=== PATIENT | female | born 1955 | race Caucasian/White ===

== ENCOUNTER 2018-08-22 16:27 | Emergency (ER) | payer BC, OTHER ==
[~2018-08-22] VITALS: Ht 167.6 cm; Wt 61.4 kg
[2018-08-22 16:29] VITALS: Ht 167.6 cm; Wt 61.4 kg
[2018-08-22] MEDS ORDERED: PROPOFOL 200 MG INJ IV ONE (17:00)
--- NOTE | 2018-08-22 17:52 | ERD ---
ER Documentation Chief Complaint Chief Complaint left foot injury sent fr [facility] for reduction HPI This is a 63-year-old female who is here from Dr. choi office, for conscious sedation for a left ankle reduction. The patient fell 2 days ago and was seen in outside hospital and just given a splint when she actually has a fractured with severely displaced medial malleolus. He sent the patient here for IV and conscious sedation he will reduce the patient's ankle himself. She complains of sharp pain to her left ankle only with movement but none with rest ROS All systems reviewed and are negative except as per history of present illness. FmHx Family History: No coronary disease Physical Exam Vitals Vital Signs Date Temp Pulse Resp B/P (MAP) Pulse Ox O2 O2 Flow FiO2 Time Delivery Rate 08/22/18 98.4 69 18 165/89 97 16:29 (114) Physical Exam Const: No acute distress Head: Atraumatic Eyes: Normal Conjunctiva ENT: Normal External Ears, Nose and Mouth. Neck: Full range of motion. No meningismus. Resp: Clear to auscultation bilaterally Cardio: Regular rate and rhythm, no murmurs Abd: Soft, non tender, non distended. Normal bowel sounds Skin: No petechiae or rashes Back: No midline or flank tenderness Ext: No cyanosis, or edema, the left lower leg is in a plaster splint from the knee to the toes, toes have good cap refill and sensation and movement Neur: Awake and alert Psych: Normal Mood and Affect Results 24 hrs Current Medications Medications Dose Sig/Kay Start Time Status Last (Trade) Ordered Route PRN Stop Time Admin Dose Reason Admin Propofol 100 mg ONCE ONCE 08/22/18 DC (Diprivan) IV 17:00 08/22/18 17:01 Procedures/MDM Procedural Sedation: Pre-assessment performed. See preceding complete history and physical for details. Time out performed. See sedation documentation for details. Risk, benefits and alternatives were discussed with the patient. Medication(s): Propofol Complications: No hypoxic or apneic events Recovered without incident. A minimum of 16 minutes of face to face time was performed including preparation, sedation and recovery time. I was at bedside during the conscious sedation duration. The ankle was reduced by Dr. choi, and the postreduction splint was applied by him and his orthopedic fellow. We will discharge with [facility] and follow-up with him Departure Diagnosis: Primary Impression: Fx medial malleolus-closed Encounter type: subsequent encounter Fracture alignment: displaced Laterality: left Fracture healing: with malunion Qualified Codes: S82.52XP - Displaced fracture of medial malleolus of left tibia, subsequent encounter for closed fracture with malunion Condition: Stable JOS BENNETT DO Aug 22, 2018 17:52
[2018-08-22] MEDS ORDERED: HYDR-3980 PO (17:55)
[2018-08-22] MEDS ORDERED: IBUP-1542 PO (17:55)
[2018-08-22 18:12] VITALS: BP 138/78; PULSE 77; RESP 18
[2018-08-22] MEDS ORDERED: ONDANSETRON 4 MG INJ IV STA (18:13)
[2018-08-22] MEDS ORDERED: HYDROmorphONE 1 MG/ML SYG IV STA (18:13)
--- NOTE | 2018-08-22 22:41 | OPR ---
Date/Time of Note Date/Time of Note DATE: 08/22/18 TIME: 22:25 Operative Report Procedure Date: Aug 22, 2018 Preoperative Diagnosis Left ankle trimalleolar fracture dislocation Postoperative Diagnosis Left ankle trimalleolar fracture dislocation Operation/Procedure Performed Left ankle trimalleolar fracture dislocation closed reduction under sedation Placement of Short leg Cast Surgeon Cristian Terry MD Live Truck Operator Leland Venegas MD Anesthesia Type: other (Propofol) Estimated Blood Loss: none Transfusion none Specimen none Grafts/Implants none Complications none Pt Condition Post Procedure: stable Disposition: other (ED) Indications Patient is a 63 year old female with a displaced ankle fracture dislocation that requires closed reduction under sedation given the severe displacement causing medial tenting on the skin. Risk Note: Patient was explained the risks and benefits of surgery and the p atient's [place] language including not limited to infection, bleeding, injury to blood vessels, nerves, ligaments or tendons. Risks of anesthesia, deep vein thrombosis and need for reduce future surgery. Patient acknowledged these risk by signing the surgical consent form. Procedure Description Patient was met in the emergency room and discussed the risks and benefits and patient signed the consent and wished to proceed. She was given Propofol sedation by Emergency room physicians. Patients trimalleolar ankle fracture was then reduced into the proper position to take stress off the medial ankle. The ankle was then placed into a short leg cast. She tolerated anesthesia without complication. Post reduction xrays confirmed the ankle was well reduced and the talus was reduced under the tibia appropriately CRISTIAN TERRY MD Aug 22, 2018 22:40
--- NOTE | 2018-08-23 06:27 | CONS ---
DATE OF ADMISSION: 08/22/2018 DATE OF CONSULTATION: 08/22/2018 CHIEF COMPLAINT: Left ankle pain. HISTORY OF PRESENT ILLNESS: Ms. Edwards is a delightful 63-year-old female who presented with a dis located left trimalleolar ankle fracture that was in a malreduced and malaligned position with tentin g on the medial ankle. Given her pain and malreduced position, the patient was indicated for a close d reduction today in the emergency room. She reports the pain as 8/10 in severity. PAST MEDICAL HISTORY: As stated in the chart. PAST SURGICAL HISTORY: As stated in the chart. ALLERGIES: NONE. SOCIAL HISTORY: The patient denies alcohol, tobacco or drug use. REVIEW OF SYSTEMS GENERAL: The patient denies any fever or weight loss. EYES: The patient denies any eye pain or discharge. ENT: The patient denies sore throat, ear pain, or difficulty swallowing. NECK: The patient denies any neck pain or stiffness. PULMONARY: No cough or productive phlegm. CARDIAC: The patient denies any chest pain, palpitations, orthopnea or PND. GASTROINTESTINAL: The patient denies any nausea, vomiting, diarrhea, abdominal pain or bloody emesis /stool. MUSCULOSKELETAL: The patient denies any arthralgias, myalgias or focal swelling. NEUROLOGIC: The patient denies any focal numbness, weakness, confusion or headache. SKIN: The patient denies any rash, irritation or erythema. ENDOCRINE: No polydipsia, polyuria. No heat or cold intolerance. PSYCHIATRIC: The patient denies any depression or anxiety or hallucinations. HEMATOLOGIC: No abnormal bruising or bleeding. PHYSICAL EXAMINATION VITAL SIGNS: Blood pressure , pulse rate , respiratory rate , and temperature d egrees. GENERAL: The patient is well developed and appropriate for usual state of health, in no apparent dis tress. HEENT: Atraumatic. Conjunctivae are pink. Pupils equal, round, and reactive to light. There is no sc leral icterus. Tympanic membranes clear bilaterally. Oropharynx clear. No nystagmus or photophobia. NECK: C-spine is soft and supple. There is no meningismus. There is no cervical lymphadenopathy. No JVD. No bruits. No goiter. CHEST: Clear to auscultation bilaterally. There are no rales, wheezes or rhonchi. HEART: Regular rate and rhythm. No murmurs, clicks, rubs or gallops. No S3 or S4. ABDOMEN: Soft, nontender and nondistended. Good bowel sounds. No rebound or guarding. No gross perit onitis. No gross organomegaly or masses. No Nur sign or McBurney point tenderness. BACK: No midline or flank tenderness. EXTREMITIES: She has significant swelling with ecchymosis and tenderness over the medial and lateral ankle with tenting of the skin medially with no open sores or wound noted. She has limited ankle do rsiflexion and plantar flexion due to pain. She says she has pain 8/10. NEURO: Alert and oriented. Cranial nerves 2-12 intact. Motor strength in all 4 extremities with 5/5 strength. Sensation grossly intact. Normal speech and gait. Babinski negative. DTR 2+ throughout. SKIN: There is no apparent rash or petechia. The skin is warm and dry. HEMATOLOGIC AND LYMPHATIC: There is no evidence of excessive bruising or lymphedema. No gross cervic al, axillary, or inguinal lymphadenopathy. PSYCHIATRIC: The patient does not appear anxious or depressed. Normal orientation and judgment. IMAGING: X-rays, 3 views of left ankle were reviewed from an outside visit shows evidence of a trima lleolar ankle fracture with medial displacement of the medial malleolus with tenting of the medial sk in. IMPRESSION: Left ankle trimalleolar fracture dislocation with a malreduced fracture with medial skin tenting at this time. PLAN: At this time, given her ongoing skin tenting and the malreduced position, the patient is indic ated for a closed reduction under anesthesia with manipulation today. The patient was given propofol medication to help with the closed reduction. Please see the procedure note as stated in the chart. The patient was placed into a splint and her toes were warm and well-perfused after the closed redu ction with the post-reduction x-rays showing adequate reduction and maintenance of the ankle mortise. The patient will be discharged home today. I told her to keep the leg elevated at all times. Pain meds will be provided per the ER doctor. The patient will follow up with me in my clinic for preope rative evaluation in the next 3 to 5 days. All questions were answered. Dictated By: ELIAS TERRY MD EIF/NTS Conf#: [id number] [facility]#: [id number] CC: JOS BENNETT DO;*End*
== END 2018-08-22 18:36 | disposition home or self-care (01) ==
LOC: E/R 16:27
DX: S82.52XP Displaced fracture of medial malleolus of left tibia, subsequent encounter for closed fracture with malunion (principal); W18.30XA Fall on same level, unspecified, initial encounter; Y92.89 Other specified places as the place of occurrence of the external cause
CPT/HCPCS: 27810; 73610; 96374; 96375; 99285; J1170; J2405